=== PATIENT | male | born 2000 | race Caucasian/White ===

== ENCOUNTER 2021-03-02 07:09 | Emergency (ER) | payer MEDICAID ==
[~2021-03-02] VITALS: Ht 177.8 cm; Wt 68.0 kg
--- NOTE | 2021-03-02 07:09 | NUR ---
LAST SIDDIQI, PREBOOK. TAKEN TO CHAIR
[2021-03-02 07:14] VITALS: BP 132/85
--- NOTE | 2021-03-02 07:23 | NUR ---
[facility] FOR PREBOOK FOR MED [facility]. C/O HEROIN WITH DRAWAL . DENIES N/V/D AT THIS TIME. VSS AT THIS TIME.
--- NOTE | 2021-03-02 07:23 | NUR ---
Asiya guerrero in EDM - 03/02/21 at 0728 by [email or web address] MARY JO SIDDIQI FOR PREBOOK FOR MED CHAI. C/O HEROIN WITH DRAWJULIAN MCGRAW N/V/D AT THIS TIME. P
--- NOTE | 2021-03-02 07:25 | NUR ---
Patient being evaluated by DR LAURA at [facility].
[2021-03-02 07:35] VITALS: BP 132/85
--- NOTE | 2021-03-02 07:36 | NUR ---
PATIENT BIB [facility] [employer]. PATIENT EXAMINED BY DR. VALDES. PATIENT MEDICALLY CLEARED AND RELEASED IN CUSTODY IN STABLE CONDITION. ORIGINAL PRE-BOOK FORM GIVEN TO OFFICER GABBY.
== END 2021-03-02 07:34 ==
LOC: MED 07:09
DX: F11.10 Opioid abuse, uncomplicated (principal)
CPT/HCPCS: 99283